=== PATIENT | male | born 1960 | race Caucasian/White ===

== ENCOUNTER → 2017-10-07 | Outpatient (CLI) | payer OTHER ==
[~2017-10-07] MED LIST: DESPEC-DM TABL1 EACH PO; MEDROL4 MG PO; TARKA; ZITHROMAX PO
== END | disposition home or self-care (01) ==
LOC: TOM 08:11
DX: R31.21 Asymptomatic microscopic hematuria (principal)

== ENCOUNTER → 2024-07-22 | Outpatient (CLI) | payer OTHER | END | disposition home or self-care (01) | LOC: RAD 11:06 | DX: E55.9 Vitamin D deficiency, unspecified (principal); I10 Essential (primary) hypertension; I49.3 Ventricular premature depolarization; I49.1 Atrial premature depolarization; N52.9 Male erectile dysfunction, unspecified; R73.01 Impaired fasting glucose; I87.2 Venous insufficiency (chronic) (peripheral) ==